=== PATIENT | female | born 1965 | race Caucasian/White ===

== ENCOUNTER 2016-08-14 12:41 | Observation (INO) | payer BC ==
[~2016-08-14] VITALS: Ht 157.5 cm; Wt 60.5 kg
[2016-08-14 13:10] LABS: HEMATOCRIT 40.7 % (36.0-46.0); MCH 31.8 PG (29.0-34.0); MCHC 33.7 G/DL (30.0-36.0); MCV 94.4 FL (83-99); MEAN PLAT.VOLUME 9.1 uM^3 (9.5-12.4); PLATELET COUNT 313 K/uL (156-360); RBC DIS.WIDTH-CV 12.6 % (11.8-14.6); RBC DIS.WIDTH-SD 43.8 % (39-53); RED BLOOD COUNT 4.31 M/uL (3.80-5.20); WHITE BLOOD COUNT 7.5 K/uL (4.1-10.2)
[2016-08-14 13:19] LABS: CHLORIDE 105 mEq/L (99-109); POTASSIUM 4.9 mEq/L (3.7-5.4); SODIUM 139 mEq/L (136-147)
[2016-08-14 13:21] LABS: GLUCOSE 106 mg/dL (70-99)
[2016-08-14 13:22] LABS: ANION GAP 11 MEQ/L (2-14)
[2016-08-14 13:25] LABS: GFR ESTIMATE (CALCULATED) > 59 mL/min/
[2016-08-14 13:26] LABS: UREA NITROGEN (BUN) 18 mg/dL (9-23)
[2016-08-14] MEDS ORDERED: SERTRALINE HCL100 MG PO (16:06)
[2016-08-14] MEDS ORDERED: ASPIR-LOW81 MG PO (16:06)
[2016-08-14] MEDS ORDERED: ALPRAZOLAM0.25 M2 PO (16:06)
[2016-08-14] MEDS ORDERED: NAPROXEN500 MG PO (16:07)
[2016-08-14 20:50] VITALS: BP 120/65
[2016-08-14 23:38] VITALS: BP 134/64
[2016-08-15 04:00] VITALS: BP 139/62
[2016-08-15 08:25] VITALS: BP 140/73
[2016-08-15 09:14] LABS: FASTING STATUS NONFASTING
[2016-08-15 09:29] LABS: HEMATOCRIT 40.3 % (36.0-46.0); MCH 31.2 PG (29.0-34.0); MCHC 33.5 G/DL (30.0-36.0); MCV 93.1 FL (83-99); MEAN PLAT.VOLUME 9.1 uM^3 (9.5-12.4); PLATELET COUNT 295 K/uL (156-360); RBC DIS.WIDTH-CV 12.6 % (11.8-14.6); RBC DIS.WIDTH-SD 43.7 % (39-53); RED BLOOD COUNT 4.33 M/uL (3.80-5.20)
[2016-08-15 09:30] LABS: WHITE BLOOD COUNT 4.8 K/uL (4.1-10.2)
[2016-08-15 10:18] LABS: ALKALINE PHOSPHATASE 57 IU/L (3-129); ANION GAP 9 MEQ/L (2-14); CHLORIDE 107 MEQ/L (99-109); GFR ESTIMATE (CALCULATED) > 59 mL/min/; GLUCOSE 98 mg/dL (70-99); HDL CHOLESTEROL 68 MG/DL (Desirable>=50); LDL CHOLESTEROL 161 mg/dL (Desirable<100); NON-HDL CHOLESTEROL 187 mg/dL (Desirable<160); POTASSIUM 4.7 MEQ/L (3.7-5.4); SAMPLE HEMOLYSIS CHECK 0; SAMPLE ICTERIC CHECK 0; SAMPLE LIPEMIA CHECK 0; SODIUM 140 MEQ/L (136-147); TOTAL BILIRUBIN 0.3 MG/DL (0.0-1.0); TOTAL CHOLESTEROL 255 mg/dL (Desirable<200); TRIGLYCERIDES 131 MG/DL (Normal: <150); UREA NITROGEN (BUN) 19 mg/dL (9-23)
[2016-08-15] MEDS ORDERED: PRAVASTATIN SOD40 MG PO (15:16)
[2016-08-15] MEDS ORDERED: ERGOCALCIF50000 UNIT PO (15:16)
[2016-08-15] MEDS ORDERED: NICOTINE PATCH1 EAC2 TD (15:16)
== END 2016-08-15 16:37 | disposition home or self-care (01) ==
LOC: EME 12:41 → 5WEST 16:20 → EDOF 16:20 → 5WEST 20:29
PROVIDERS: Family Medicine
DX: G43.109 Migraine with aura, not intractable, without status migrainosus (principal); R41.82 Altered mental status, unspecified; R47.81 Slurred speech; E78.5 Hyperlipidemia, unspecified; Z91.19 Patient's noncompliance with other medical treatment and regimen; F41.9 Anxiety disorder, unspecified; F32.9 Major depressive disorder, single episode, unspecified; F17.210 Nicotine dependence, cigarettes, uncomplicated; E55.9 Vitamin D deficiency, unspecified
CPT/HCPCS: 70450; 70551; 71020; 80048; 80061; 80076; 82306; 82607; 84443; 85027; 93005; 93880; 99281; 99285; G0378